=== PATIENT | female | born 2000 | race Caucasian/White ===

== ENCOUNTER → 2024-08-08 | Outpatient (CLI) | payer BC | END | disposition home or self-care (01) | LOC: LABWHC1 11:09 | PROVIDERS: ATTEND Surgery | DX: E66.01 Morbid (severe) obesity due to excess calories (principal); E55.9 Vitamin D deficiency, unspecified ==

== ENCOUNTER → 2024-08-08 | Outpatient (CLI) | payer BC ==
[2024-08-08 10:54] VITALS: BP 143/92; PULSE 97; RESP 16; TEMP 98
[2024-08-08 15:48] LABS: Blood Urea Nitrogen 7.8 mg/dL (9.0-27.0); Carbon Dioxide 25.1 mmol/L (21.6-31.8); Chloride 105 mmol/L (96-109); Glucose 130 mg/dL (70-110); Potassium 3.8 mmol/L (3.5-5.5); Sodium 141 mmol/L (135-145)
[2024-08-08 15:49] LABS: ALT 28 U/L (8-44); AST 23 U/L (13-35); Albumin 4.4 g/dL (3.8-4.9); Albumin/Globulin Ratio 1.38 Ratio (1.60-3.17); Alkaline Phosphatase 88 U/L (41-126); Calcium 9.3 mg/dL (8.7-10.3); Globulin 3.2 g/dL (1.6-3.3); Total Bilirubin <0.2 mg/dL (0.3-1.2); Total Protein 7.6 g/dL (6.2-8.2)
[2024-08-08 16:28] LABS: HCT 38.5 % (37.2-46.3); HGB 12.5 g/dL (12.0-15.0); MCH 28.9 pg (27.0-32.0); MCHC 32.5 g/dL (32.0-37.0); MCV 88.9 FL (80.0-97.0); Mean Platelet Volume 10.5 FL (9.5-12.2); NRBC Per 100 WBC 0 X 10*3/uL (0.00-0.01); Platelet Count 327 X 10*3/uL (140-440); RBC 4.33 X 10*6/uL (4.10-5.20); RDW 12.3 % (11.5-14.5); WBC 9.04 X 10*3/uL (4.50-10.00)
== END ==
LOC: BARWHC3 10:19
PROVIDERS: ATTEND Surgery
DX: E66.01 Morbid (severe) obesity due to excess calories (principal); Z53.9 Procedure and treatment not carried out, unspecified reason
CPT/HCPCS: 80053; 82306; 82607; 82746; 83036; 84425; 85027; 93005; 99202

== ENCOUNTER → 2024-08-15 | Outpatient (CLI) | payer BC ==
[2024-08-15 13:13] VITALS: BMI 38.9
== END ==
LOC: BARWHC3 12:47
PROVIDERS: ATTEND Surgery
DX: E66.01 Morbid (severe) obesity due to excess calories (principal); Z71.3 Dietary counseling and surveillance
CPT/HCPCS: 97804; 99211

== ENCOUNTER 2024-09-05 09:37 | Day surgery (SDC) | payer BC ==
[~2024-09-05 09:37] MED LIST: LACTATED RINGERS 1,000 ML IV SCH
[2024-09-05 10:11] VITALS: RESP 16; TEMP 97.3
[2024-09-05] MEDS: IV FLUID CONTINUATION 1,000 ML IV ONE (10:20)
[2024-09-05] MEDS ORDERED: LIDOCAINE 1% INJ 10MG/ML (20 ML MDV) ONE (13:03)
[2024-09-05] MEDS ORDERED: PROPOFOL 10 MG/ML 20 ML VIAL IV ONE (13:03)
--- NOTE | 2024-09-05 13:31 | P.OP ---
Date of Procedure: 09/05/24 Preoperative Diagnosis: Gerd Morbid obesity Postoperative Diagnosis: Gerd Obesity BMI 39 Procedure(s) Performed: EGD Anesthesia: MAC Surgeon: Vasu Fierro Estimated Blood Loss (ml): 5 Pathology: other (Antrum) Condition: stable Disposition: PACU Description of Procedure: Patient placed on the endoscopy table in the lateral position. She received IV sedation. The Gastroflux oropharynx passed in the esophagus and stomach. Scope was placed through the pylorus. The first and second portion of the duodenum appeared normal. The scope was brought back through the antrum. The antrum was minimal Flaim. A biopsy performed. The scope is retroflexed Patrizia stomach. Normal. The GE junction was at 40 cm. The distal esophagus appeared normal. The proximal esophagus appeared normal scope withdrawn patient.
[2024-09-05 13:35] VITALS: BP 115/78; PULSE 88
== END 2024-09-05 13:56 | disposition home or self-care (01) ==
LOC: ORWHC2ENDO 09:37
PROVIDERS: ATTEND Surgery
DX: K21.9 Gastro-esophageal reflux disease without esophagitis (principal); K29.50 Unspecified chronic gastritis without bleeding; J44.9 Chronic obstructive pulmonary disease, unspecified; E66.01 Morbid (severe) obesity due to excess calories; Z68.39 Body mass index [BMI] 39.0-39.9, adult; F17.290 Nicotine dependence, other tobacco product, uncomplicated
CPT/HCPCS: 43239; 81025; 88305; J2003; J2704

== ENCOUNTER → 2024-09-19 | Outpatient (CLI) | payer BC ==
[2024-09-19 15:49] LABS: Basophils # (A) 0.08 X 10*3/uL (0.00-0.10); Basophils % (A) 0.8 %; Eosinophils # (A) 0 X 10*3/uL (0.04-0.35); Eosinophils % (A) 0 %; HCT 40.9 % (37.2-46.3); HGB 13.2 g/dL (12.0-15.0); Lymphocytes # (A) 2.39 X 10*3/uL (0.90-5.00); Lymphocytes % (A) 23.5 %; MCH 28.4 pg (27.0-32.0); MCHC 32.3 g/dL (32.0-37.0); MCV 88.1 FL (80.0-97.0); Mean Platelet Volume 9.9 FL (9.5-12.2); Monocytes # (A) 0.52 X 10*3/uL (0.20-1.00); Monocytes % (A) 5.1 %; NRBC Per 100 WBC 0 X 10*3/uL (0.00-0.01); Neutrophils # (A) 7.14 X 10*3/uL (1.80-7.70); Neutrophils % (A) 70.1 %; Platelet Count 318 X 10*3/uL (140-440); RBC 4.64 X 10*6/uL (4.10-5.20); RDW 12.3 % (11.5-14.5); WBC 10.18 X 10*3/uL (4.50-10.00)
[2024-09-19 15:59] LABS: ALT 25 U/L (8-44); AST 22 U/L (13-35); Albumin 4.6 g/dL (3.8-4.9); Albumin/Globulin Ratio 1.31 Ratio (1.60-3.17); Alkaline Phosphatase 89 U/L (41-126); Blood Urea Nitrogen 11.9 mg/dL (9.0-27.0); Calcium 9.7 mg/dL (8.7-10.3); Carbon Dioxide 26.5 mmol/L (21.6-31.8); Chloride 100 mmol/L (96-109); Globulin 3.5 g/dL (1.6-3.3); Glucose 150 mg/dL (70-110); Potassium 3.5 mmol/L (3.5-5.5); Sodium 138 mmol/L (135-145); Total Bilirubin 0.2 mg/dL (0.3-1.2); Total Protein 8.1 g/dL (6.2-8.2)
== END | disposition home or self-care (01) ==
LOC: LABPAT 11:29
PROVIDERS: ATTEND Surgery
DX: Z01.812 Encounter for preprocedural laboratory examination (principal)
CPT/HCPCS: 80053; 85025

== ENCOUNTER 2024-09-26 07:32 | Day surgery (SDC) | payer BC ==
[2024-09-26] MEDS: IV FLUID CONTINUATION 1,000 ML IV ONE (08:05)
[2024-09-26] MEDS: DEXAMETHASONE SOD PHOSPHATE 4 MG/ML 1 ML VIAL IV ONE (08:06)
[2024-09-26] MEDS: LACTATED RINGERS 1,000 ML IV SCH (08:06)
[2024-09-26] MEDS: ONDANSETRON 4 MG/2 ML VIAL IVP ONE (08:06)
[2024-09-26] MEDS: ENOXAPARIN 40 MG/0.4 ML SYRINGE SQ PRN (08:07)
[2024-09-26] MEDS: LIDOCAINE 1%-EPI 1:100,000 20 ML VIAL SQ ONE ×2 (08:13→08:56)
[2024-09-26] MEDS ORDERED: LIDOCAINE 1% INJ 10MG/ML (20 ML MDV) ONE (08:30)
[2024-09-26] MEDS ORDERED: GLYCOPYRROLATE 0.2 MG/ML 2 ML VIAL ONE (08:30)
[2024-09-26] MEDS ORDERED: PROPOFOL 10 MG/ML 20 ML VIAL IV ONE (08:30)
[2024-09-26] MEDS ORDERED: HYDROmorphone (PF) 1 MG/ML ONE (08:30)
[2024-09-26] MEDS ORDERED: MIDAZOLAM 2 MG/2 ML VIAL ONE (08:30)
[2024-09-26] MEDS ORDERED: ROCURONIUM 10 MG/ML (5 ML VIAL) IV ONE (08:30)
[2024-09-26] MEDS ORDERED: fentaNYL (PF) 50 MCG/ML 2 ML AMP ONE (08:30)
[2024-09-26] MEDS ORDERED: NEOSTIGMINE 1 MG/ML 10 ML VIAL ONE (08:30)
[2024-09-26] MEDS ORDERED: SUCCINYLCHOLINE CHLORIDE 200 MG/10 ML VIAL IV ONE (08:30)
[2024-09-26] MEDS: ceFAZolin 2 GM in DEXTROSE 5% IN WATER 50 ML IVPB PRN (08:32)
--- NOTE | 2024-09-26 08:36 | P.GSHP ---
History of Present Illness H&P Date: 09/26/24 Chief Complaint: Morbid obesity, BMI 37morbid obesity, BMI 37 This is a 24-year-old female whose had lifetime problems obesity. Patient presents today for sleeve gastrectomy. Patient is where the risk of surgery include bleeding conversion they will procedure injury to the stomach liver or spleen. She also has gastric staple disruption bleeding and scarring.this a 24-year-old female who's had lifetime problems obesity. Patient presents today for sleeve gastrectomy. Patient's aware the risks of surgery including conversion O procedure and injury to the stomach liver or spleen. She also had gastric stapling disruption bleeding and scarring. Past Medical History Past Medical History: No Reported History History of Any Multi-Drug Resistant Organisms: None Reported Additional Past Surgical History / Comment(s): christopher as a toddler on chin, surgical removed-3x. wisdom teeth removed. EGD Past Anesthesia/Blood Transfusion Reactions: No Reported Reaction Smoking Status: Former smoker - Past Family History Mother Family Medical History: COPD Medications and Allergies Home Medications Medication Instructions Recorded Confirmed Type No Known Home Medications 08/08/24 09/26/24 History Allergies Allergy/AdvReac Type Severity Reaction Status Date / Time No Known Allergies Allergy Verified 09/20/24 17:27 Surgical - Exam Vital Signs Temp Pulse Resp BP Pulse Ox 97.8 F 96 18 113/72 98 09/26/24 08:05 09/26/24 08:05 09/26/24 08:05 09/26/24 08:05 09/26/24 08:05 BMI 37BMI 37 - General well developed, well nourished, no distress - Eyes PERRL - ENT normal pinna - Neck no masses - Respiratory normal expansion - Cardiovascular Rhythm: regular - Abdomen Abdomen: soft, non tender Assessment and Plan Assessment: Monitor basicmorbid obesity, perform sleeve gastrectomy., we'll perform sleeve gastrectomy.
[2024-09-26] MEDS ORDERED: NALOXONE 0.4 MG/ML 1 ML VIAL IV PRN (10:09)
[2024-09-26] MEDS ORDERED: HYDROcodone/APAP 15 ML SOLUTION PO PRN (10:09)
[2024-09-26] MEDS ORDERED: HYDROmorphone 2 MG/ML 1 ML SYRINGE IVP PRN (10:09)
[2024-09-26] MEDS ORDERED: diphenhydrAMINE 50 MG/ML 1 ML VIAL IVP PRN (10:09)
[2024-09-26] MEDS: HYDROmorphone 0.5 MG/0.5 ML SYRINGE IVP PRN ×2 (10:30→15:51)
[2024-09-26] MEDS: droPERidol 2.5 MG/ML VIAL IVP STA (12:41)
[2024-09-26] MEDS: DEXAMETHASONE SOD PHOSPHATE 4 MG/ML 1 ML VIAL IVP SCH (12:54)
[2024-09-26] MEDS: KETOROLAC 15 MG/ML 1 ML VIAL IVP SCH (12:54)
[2024-09-26] MEDS: 0.9% NACL WITH KCL 20 MEQ/L 1,000 ML IV SCH (13:24)
[2024-09-26] MEDS: ALBUTEROL NEBULIZED 2.5 MG/3 ML INHALATION SCH (13:31)
[2024-09-26] MEDS: ONDANSETRON 4 MG/2 ML VIAL IVP PRN (15:51)
[2024-09-26] MEDS: HYOSCYAMINE ORAL DROPS 1.875 MG/15 ML BOTTLE PO PRN (16:12)
[2024-09-26] MEDS: ceFAZolin 2 GM in DEXTROSE 5% IN WATER 50 ML IVPB SCH (16:12)
--- NOTE | 2024-09-26 17:01 | P.OP ---
Date of Procedure: 09/26/24 Preoperative Diagnosis: Morbid obesity, BMI 37 Postoperative Diagnosis: Obesity, BMI 37 Procedure(s) Performed: Laparoscopic sleeve gastrectomy Anesthesia: KAYKAY Surgeon: Vasu Fierro Estimated Blood Loss (ml): 5 Pathology: other (Stomach) Condition: stable Disposition: PACU Description of Procedure: The patient was placed on the operating room table in the supine position. She received general anesthesia and then was placed in dorsal lithotomy position. Her abdomen was prepped and draped in sterile fashion. The skin incision sites were anesthetized 1% local Xylocaine. And then the skin was incised with an 11 blade in the left lateral position. Using a blade less trocar under direct visualization the peritoneal cavity was entered. The abdomen was insufflated and then a 5 mm laparoscope was placed into the peritoneal cavity. A 5 mm trocar was placed in the right epigastric, and right lateral position. A 15 mm trocar was placed in the supra-umbilical position and another 5 mm trocar was placed in the left lateral position. The left lateral lobe of the liver was retracted. The stomach was visualized. The greater curvature of the stomach was then dissected using the Harmonic scissors. The dissection occurred approximately 5 cm from the pylorus to the level of the left keven. There was no hiatal hernia seen. At this point a 40-Romanian bougie dilator was placed the oropharynx and passed into the esophagus and into the stomach by the RN LACTATION. The sleeve gastrectomy was performed by using the powered echelon stapler with a seam guard buttress material. Sequential firings of the stapler were performed. The gastric remnant was then brought out through the 15 mm trocar site. The dilator was withdrawn. And a orogastric tube was replaced into the stomach. The stomach was insufflated with 200 mL of methylene blue normal saline. There was no evidence of extravasation. The abdomen was irrigated there is no bleeding seen. The Hernan-Jose Rafael device was used to close the 15 mm trocar with 0 Vicryl. Skin was closed with interrupted 3-0 Monocryl sutures once the trochars withdrawn. Dermabond dressing was applied. Patient was sent to recovery in stable condition.
[2024-09-26] MEDS: ENOXAPARIN 40 MG/0.4 ML SYRINGE SQ SCH (20:35)
[2024-09-27 08:07] LABS: Basophils # (A) 0.01 X 10*3/uL (0.00-0.10); Basophils % (A) 0.1 %; Eosinophils # (A) 0 X 10*3/uL (0.04-0.35); Eosinophils % (A) 0 %; HCT 39.1 % (37.2-46.3); HGB 13.2 g/dL (12.0-15.0); Lymphocytes # (A) 0.74 X 10*3/uL (0.90-5.00); Lymphocytes % (A) 4.7 %; MCH 29.1 pg (27.0-32.0); MCHC 33.8 g/dL (32.0-37.0); MCV 86.1 FL (80.0-97.0); Mean Platelet Volume 10.6 FL (9.5-12.2); Monocytes # (A) 0.34 X 10*3/uL (0.20-1.00); Monocytes % (A) 2.2 %; NRBC Per 100 WBC 0 X 10*3/uL (0.00-0.01); Neutrophils # (A) 14.54 X 10*3/uL (1.80-7.70); Neutrophils % (A) 92.4 %; Platelet Count 317 X 10*3/uL (140-440); RBC 4.54 X 10*6/uL (4.10-5.20); RDW 11.9 % (11.5-14.5); WBC 15.72 X 10*3/uL (4.50-10.00)
[2024-09-27 08:10] LABS: Blood Urea Nitrogen 7.3 mg/dL (9.0-27.0); Carbon Dioxide 23.2 mmol/L (21.6-31.8); Chloride 104 mmol/L (96-109); Magnesium 2.1 mg/dL (1.5-2.4); Phosphorus 2.4 mg/dL (2.4-5.1); Sodium 140 mmol/L (135-145)
[2024-09-27] MEDS: PANTOPRAZOLE 40 MG/10 ML VIAL IV SCH (09:04)
[2024-09-27 10:18] VITALS: BMI 37.4
--- NOTE | 2024-09-27 13:28 | P.CONS ---
History of Present Illness - Reason for Consult Consult date: 09/27/24 Medical management - History of Present Illness History of present illness; patient is a 24-year-old lady with past medical history significant for obesity who presented to the hospital for elective sleeve gastrectomy. Patient has been following up outpatient with general surgery, patient BMI is 37.4, patient was scheduled for sleeve gastrectomy on 09/27, postoperatively internal medicine team were consulted for medical management REVIEW OF SYSTEMS: CONSTITUTIONAL: No fever, no malaise, no fatigue. HEENT: No recent visual problems or hearing problems. Denied any sore throat. CARDIOVASCULAR: No chest pain, orthopnea, PND, no palpitations, no syncope. PULMONARY: No shortness of breath, no cough, no hemoptysis. GASTROINTESTINAL: No diarrhea, no nausea, complaining of pain at the surgical site NEUROLOGICAL: No headaches, no weakness, no numbness. HEMATOLOGICAL: Denies any bleeding or petechiae. GENITOURINARY: Denies any burning micturition, frequency, or urgency. MUSCULOSKELETAL/RHEUMATOLOGICAL: Denies any joint pain, swelling, or any muscle pain. ENDOCRINE: Denies any polyuria or polydipsia. The rest of the 14-point review of systems is negative. PHYSICAL EXAMINATION: GENERAL: The patient is alert and oriented x3, not in any acute distress. Well developed, well nourished. HEENT: Pupils are round and equally reacting to light. EOMI. No scleral icterus. No conjunctival pallor. Normocephalic, atraumatic. No pharyngeal erythema. No thyromegaly. CARDIOVASCULAR: S1 and S2 present. No murmurs, rubs, or gallops. PULMONARY: Chest is clear to auscultation, no wheezing or crackles. ABDOMEN: Soft, nontender, nondistended, laparoscopic surgical incision seen MUSCULOSKELETAL: No joint swelling or deformity. EXTREMITIES: No cyanosis, clubbing, or pedal edema. NEUROLOGICAL: Gross neurological examination did not reveal any focal deficits. SKIN: No rashes. Assessment and plan Obesity Status post sleeve gastrectomy Monitor vital signs Monitor CBC Continue pain management per surgery Advance diet per surgery Labs and medication were reviewed.. Continue same treatment. Continue with symptomatic treatment. Resume home medication. Monitor labs and vitals. DVT and GI prophylaxis. Further recommendations as per clinical course of the patient Dictation was produced using [employer] software. please excuse any grammatical, word or spelling errors. Past Medical History Past Medical History: No Reported History History of Any Multi-Drug Resistant Organisms: None Reported Additional Past Surgical History / Comment(s): christopher as a toddler on chin, surgical removed-3x. wisdom teeth removed. EGD Past Anesthesia/Blood Transfusion Reactions: No Reported Reaction Past Psychological History: No Psychological Hx Reported Smoking Status: Vaper Past Alcohol Use History: None Reported Additional Past Alcohol Use History / Comment(s): STOPPED VAPING 30 DAYS AGO Past Drug Use History: None Reported - Past Family History Mother Family Medical History: COPD Medications and Allergies Home Medications Medication Instructions Recorded Confirmed Type No Known Home Medications 08/08/24 09/26/24 History Allergies Allergy/AdvReac Type Severity Reaction Status Date / Time No Known Allergies Allergy Verified 09/20/24 17:27 Physical Exam Vitals: Vital Signs Temp Pulse Resp BP Pulse Ox 09/27/24 07:03 98.1 F 86 18 126/76 95 09/27/24 02:00 98.4 F 92 15 126/84 97 09/26/24 20:16 98.1 F 92 16 130/85 96 09/26/24 16:46 96 Intake and Output 09/26/24 09/27/24 09/27/24 22:59 06:59 14:59 Other: # Voids 2 1 Weight 102 kg Results CBC & Chem 7: 09/27/24 03:17 09/27/24 03:17 Labs: Abnormal Lab Results - Last 24 Hours (Table) 09/27/24 09/27/24 Range/Units 03:17 03:17 WBC 15.72 H (4.50-10.00) X 10*3/uL Immature Gran # 0.09 H (0.00-0.04) X 10*3/uL Neutrophils # 14.54 H (1.80-7.70) X 10*3/uL Lymphocytes # 0.74 L (0.90-5.00) X 10*3/uL Eosinophils # 0 L (0.04-0.35) X 10*3/uL Anion Gap 12.80 H (4.00-12.00) mmol/L BUN 7.3 L (9.0-27.0) mg/dL
--- NOTE | 2024-09-27 14:56 | P.DS ---
Providers Expected date of discharge: 09/27/24 Attending physician: Vasu Fierro Consults: 09/26/24 17:02 Consult Physician Routine Consulting Provider: Kvng Miller Consult Reason/Comments: Medical management Do you want consulting provider notified?: Yes Primary care physician: Carolyn Guardado Hospital Course: Discharge diagnosis 1. Morbid obesity 2. Leukocytosis likely reactive from the [facility] course This is a 24-year-old female with history of morbid obesity. She is status post laparoscopic sleeve gastrectomy. Patient tolerated surgery well. Her pain is controlled. She is tolerating her liquids. She has been up and ambulating. Denies any difficulty urinating. She is afebrile. She is stable for discharge. Please refer to chart for any further details. Physician Water Quality Specialist note has been reviewed by physician. Signing provider agrees with the documented findings, assessment, and plan of care. Patient Condition at Discharge: Stable Plan - Discharge Summary Discharge Rx Participant: Yes New Discharge Prescriptions: New HYDROcodone/APAP 5-325MG [[place] 5-325] 1 tab PO Q6HR PRN 2 Days #5 tab PRN Reason: Pain ursodioL [Ursodiol] 300 mg PO BID 30 Days #60 capsule bisacodyL [Dulcolax] 5 mg PO DAILY PRN #10 tab PRN Reason: Constipation Simethicone 40 mg/0.6 ml Drops [Mylicon Drops] 40 mg PO PCHS PRN #30 ml PRN Reason: Gas Omeprazole [PriLOSEC] 40 mg PO DAILY #90 cap Ondansetron Odt [Zofran Odt] 4 mg PO Q8HR PRN #9 tab PRN Reason: Nausea Discharge Medication List HYDROcodone/APAP 5-325MG [[place] 5-325] 1 tab PO Q6HR PRN 2 Days #5 tab 09/27/24 [Rx] Omeprazole [PriLOSEC] 40 mg PO DAILY #90 cap 09/27/24 [Rx] Ondansetron Odt [Zofran Odt] 4 mg PO Q8HR PRN #9 tab 09/27/24 [Rx] Simethicone 40 mg/0.6 ml Drops [Mylicon Drops] 40 mg PO PCHS PRN #30 ml 09/27/24 [Rx] bisacodyL [Dulcolax] 5 mg PO DAILY PRN #10 tab 09/27/24 [Rx] ursodioL [Ursodiol] 300 mg PO BID 30 Days #60 capsule 09/27/24 [Rx] Follow up Appointment(s)/Ref[facility] [place] [facility] Week Activity/Diet/Wound Care/Special Instructions: No driving while taking [place] No lifting over 10 pounds You may shower. No soaking or tub baths for 2 weeks Very light activity until you are reevaluated at your follow up appointment with your surgeon Continue bariatric liquid diet. No straws or carbonated beverages Discharge Disposition: HOME SELF-CARE
[2024-09-27] MEDS: 1: MVI, ADULT NO.4 WITH VIT K 10 ML, THIAMINE 100 MG, FOLIC ACID 1 MG, POTASSIUM CHLORID IV SCH (15:00)
[2024-09-27] MEDS ORDERED: HYDROmorphone 1 MG/ML 1 ML SYRINGE IVP PRN (20:25)
[2024-09-28 07:48] VITALS: BP 114/70; PULSE 57; RESP 16; TEMP 98.9
[2024-09-28 08:18] LABS: HCT 39.2 % (37.2-46.3); HGB 13.2 g/dL (12.0-15.0); MCH 29.3 pg (27.0-32.0); MCHC 33.7 g/dL (32.0-37.0); MCV 86.9 fL (80.0-97.0); Mean Platelet Volume 9.9 fL (9.5-12.2); Platelet Count 352 10*3/uL (140-440); RBC 4.51 10*6/uL (4.10-5.20); WBC 15.65 10*3/uL (4.50-10.00)
--- NOTE | 2024-09-28 09:56 | P.DS ---
Providers Expected date of discharge: 09/28/24 Attending physician: Vasu Fierro Consults: 09/26/24 17:02 Consult Physician Routine Consulting Provider: Kvng Miller Consult Reason/Comments: Medical management Do you want consulting provider notified?: Yes Primary care physician: Carolyn Guardado Hospital Course: Discharge diagnosis 1. Morbid obesity 2. Leukocytosis likely reactive from the [facility] course This is a 24-year-old female with history of morbid obesity. She is status post laparoscopic sleeve gastrectomy. Patient tolerated surgery well. Her pain is controlled. She is tolerating her liquids. She has been up and ambulating. Denies any difficulty urinating. She is afebrile. She is stable for discharge. Please refer to chart for any further details. Physician Manager Sales Support note has been reviewed by physician. Signing provider agrees with the documented findings, assessment, and plan of care. Patient Condition at Discharge: Stable Plan - Discharge Summary Discharge Rx Participant: Yes New Discharge Prescriptions: New HYDROcodone/APAP 5-325MG [[place] 5-325] 1 tab PO Q6HR PRN 2 Days #5 tab PRN Reason: Pain ursodioL [Ursodiol] 300 mg PO BID 30 Days #60 capsule bisacodyL [Dulcolax] 5 mg PO DAILY PRN #10 tab PRN Reason: Constipation Simethicone 40 mg/0.6 ml Drops [Mylicon Drops] 40 mg PO PCHS PRN #30 ml PRN Reason: Gas Omeprazole [PriLOSEC] 40 mg PO DAILY #90 cap Ondansetron Odt [Zofran Odt] 4 mg PO Q8HR PRN #9 tab PRN Reason: Nausea Discharge Medication List HYDROcodone/APAP 5-325MG [[place] 5-325] 1 tab PO Q6HR PRN 2 Days #5 tab 09/27/24 [Rx] Omeprazole [PriLOSEC] 40 mg PO DAILY #90 cap 09/27/24 [Rx] Ondansetron Odt [Zofran Odt] 4 mg PO Q8HR PRN #9 tab 09/27/24 [Rx] Simethicone 40 mg/0.6 ml Drops [Mylicon Drops] 40 mg PO PCHS PRN #30 ml 09/27/24 [Rx] bisacodyL [Dulcolax] 5 mg PO DAILY PRN #10 tab 09/27/24 [Rx] ursodioL [Ursodiol] 300 mg PO BID 30 Days #60 capsule 09/27/24 [Rx] Follow up Appointment(s)/Referral(s[facility] [place] [facility] - 1 Week Patient Instructions/Handouts: Nutrition after Bariatric Surgery (DC), Laparoscopic Sleeve Gastrectomy (DC) Activity/Diet/Wound Care/Special Instructions: No driving while taking [place] No lifting over 10 pounds You may shower. No soaking or tub baths for 2 weeks Very light activity until you are reevaluated at your follow up appointment with your surgeon Continue bariatric liquid diet. No straws or carbonated beverages Discharge Disposition: HOME SELF-CARE
--- NOTE | 2024-09-29 22:36 | P.PN ---
Subjective Progress Note Date: 09/28/24 History of present illness; patient is a 24-year-old lady with past medical history significant for obesity who presented to the hospital for elective sleeve gastrectomy. Patient has been following up outpatient with general surgery, patient BMI is 37.4, patient was scheduled for sleeve gastrectomy on 09/27, postoperatively internal medicine team were consulted for medical management 09/28/2024 Patient evaluated today postoperative day #1 lap sleeve gastrectomy. She is doing well and has been up ambulating without difficulty. Abdominal binder is in place. WBC 15.65 today. She has been cleared for DC home by general surgery. Patient to follow up at the bariatric center on September 30. REVIEW OF SYSTEMS: CONSTITUTIONAL: No fever, no malaise, no fatigue. HEENT: No recent visual problems or hearing problems. Denied any sore throat. CARDIOVASCULAR: No chest pain, orthopnea, PND, no palpitations, no syncope. PULMONARY: No shortness of breath, no cough, no hemoptysis. GASTROINTESTINAL: No diarrhea, no nausea, complaining of pain at the surgical site NEUROLOGICAL: No headaches, no weakness, no numbness. PHYSICAL EXAMINATION: GENERAL: The patient is alert and oriented x3, not in any acute distress. Well developed, well nourished. HEENT: Pupils are round and equally reacting to light. EOMI. No scleral icterus. No conjunctival pallor. Normocephalic, atraumatic. No pharyngeal erythema. No thyromegaly. CARDIOVASCULAR: S1 and S2 present. No murmurs, rubs, or gallops. PULMONARY: Chest is clear to auscultation, no wheezing or crackles. ABDOMEN: Soft, nontender, nondistended, laparoscopic surgical incision seen MUSCULOSKELETAL: No joint swelling or deformity. EXTREMITIES: No cyanosis, clubbing, or pedal edema. NEUROLOGICAL: Gross neurological examination did not reveal any focal deficits. SKIN: No rashes. Assessment and plan Obesity Status post sleeve gastrectomy Leukocytosis Monitor vital signs Monitor CBC Continue pain management per surgery Advance diet per surgery Labs and medication were reviewed.. Continue same treatment. Continue with symptomatic treatment. Resume home medication. Monitor labs and vitals. DVT and GI prophylaxis. Further recommendations as per clinical course of the patient Dictation was produced using [employer] dictation software. please excuse any grammatical, word or spelling errors. The impression and plan of care has been dictated by Donna Calvin Nurse Practitioner as directed. Dr. Richmond MD I have performed a history and physical examination and medical decision making of this patient, discussed the same with the dictator, and agree with the dictators assessment and plan as written, documented as a scribe. Based on total visit time, I have performed more than 50% of this visit. Objective - Vital Signs Vital signs: Vital Signs Temp 98.9 F 09/28/24 07:31 Pulse 57 L 09/28/24 07:31 Resp 16 09/28/24 07:31 BP 114/70 09/28/24 07:31 Pulse Ox 97 09/28/24 07:31 FiO2 - Labs CBC & Chem 7: 09/28/24 08:00 09/27/24 03:17 Assessment and Plan Time with Patient: Less than 30
== END 2024-09-28 11:46 | disposition home or self-care (01) ==
LOC: OR 07:32 → 4SSUR 11:38 → OR 09-28 11:46
PROVIDERS: ATTEND Surgery
DX: E66.01 Morbid (severe) obesity due to excess calories (principal); Z68.37 Body mass index [BMI] 37.0-37.9, adult; Z87.891 Personal history of nicotine dependence; Z98.84 Bariatric surgery status
CPT/HCPCS: 43775; 43450; 94760; 97161; 97165; 81025; 80051; 82310; 82565; 83735; 84100; 84520; 85025; 85027; 88307; J2250; J0330; J1100 ×3; J2710; J3411; J0690 ×2; J2405 ×2; J3480; J2003; J1650 ×3; J3010; J1171 ×2; J1885 ×3; J2704; J1596; J2470 ×2

== ENCOUNTER → 2024-10-10 | Outpatient (CLI) | payer BC ==
[2024-10-10 11:33] VITALS: BMI 34.6
[2024-10-10 12:39] VITALS: BP 121/82; PULSE 80; RESP 16; TEMP 98.1
--- NOTE | 2024-10-18 16:34 | P.HPBAR ---
Bariatric H&P - History & Physicial H&P Date: 10/10/24 History & Physicial: Visit/CC: f/u Patient initial contact: Initial weight: 234 kg Initial weight in pounds: 515.88 Height: 5 ft 5 in Initial BMI: Last weight: Current weight: 94.347 kg Current weight in pounds: 208.00 Current BMI: 34.6 [place] body weight (based on NIH guidelines): 56.699 kg Excess body weight loss: The patient is a 24 year-old F who presents for Bariatric Assessment. this is a 24-year-old female who is status post sleeve gastrectomy. Patient has continued weight loss. She has some mild GERD. She denies any dysphagia. Past Medical History Past Medical History: No Reported History History of Any Multi-Drug Resistant Organisms: None Reported Past Surgical History: Bariatric Surgery Additional Past Surgical History / Comment(s): christopher as a toddler on chin, surgical removed-3x. wisdom teeth removed. EGD, Gastric Sleeve-09/26/24 Past Anesthesia/Blood Transfusion Reactions: No Reported Reaction Past Psychological History: No Psychological Hx Reported Smoking Status: Former smoker Past Alcohol Use History: None Reported Additional Past Alcohol Use History / Comment(s): HX OF VAPING-quit Past Drug Use History: None Reported - Past Family History Mother Family Medical History: COPD Surgical - Exam Vital Signs Temp Pulse Resp BP 98.1 F 80 16 121/82 10/10/24 10:30 10/10/24 10:30 10/10/24 10:30 10/10/24 10:30 - General well developed, well nourished, no distress - Eyes PERRL - ENT normal pinna - Neck no masses - Respiratory normal expansion - Cardiovascular Rhythm: regular - Abdomen Abdomen: soft, non tender Bariatric Assessment & Plan Plan: Status post the gastric. Patient's weight loss is excellent. Her GERD is minimal she will follow-up in 1 month. Bariatric Checklist Checklist: Plan: Checklist: EGD: 1. Hiatal hernia: 2. H. Pylori: HgbA1c: Vitamin D: Smoking: Primary care physician referral: [facility] Psychiatry clearance: Cardiology clearance: Sleep study: Diet journal: VTE risk score: VTE risk level: Rehab needs at discharge:
== END ==
LOC: BARWHC3 10:17
PROVIDERS: ATTEND Surgery
DX: E66.01 Morbid (severe) obesity due to excess calories (principal); K21.9 Gastro-esophageal reflux disease without esophagitis; Z71.3 Dietary counseling and surveillance; Z68.34 Body mass index [BMI] 34.0-34.9, adult; Z98.84 Bariatric surgery status
CPT/HCPCS: 97802; 99211

== ENCOUNTER → 2024-11-07 | Outpatient (CLI) | payer BC ==
[2024-11-07 10:13] VITALS: BP 101/69; PULSE 83; RESP 16; TEMP 98.2; BMI 32.4
== END ==
LOC: BARWHC3 09:53
PROVIDERS: ATTEND Surgery
DX: E66.01 Morbid (severe) obesity due to excess calories (principal); Z71.3 Dietary counseling and surveillance; Z68.32 Body mass index [BMI] 32.0-32.9, adult
CPT/HCPCS: 97803; 99211